=== PATIENT | female | born 1965 | race Caucasian/White ===

== ENCOUNTER 2024-09-22 17:57 | Emergency (ER) | payer OTHER, SELFPAY ==
[2024-09-22 17:59] VITALS: BP 165/83; PULSE 65; RESP 18; TEMP 36.6; O2SAT 100
--- NOTE | 2024-09-22 19:31 | CT_ITS ---
PROCEDURE: SPINE CERVICAL WITHOUT CONTRAS 09/22/2024 REASON FOR EXAM: NECK PAIN TECHNIQUE: Cervical spine CT without contrast. Coronal and Sagittal reconstruction series were provided. One or more dose reduction techniques were used (e.g., Automated exposure control, adjustment of the mA and/or kV according to patient size, use of iterative reconstruction technique RADIATION DOSE SUMMARY: DLP: 1311.25 MGycm COMPARISON: No relevant prior. FINDINGS: Vertebra: Vertebral bodies normal in height. C1-C2: Atlantoaxial articulation is maintained. Alignment: No scoliosis. No spondylolisthesis. Discs: Normal in height. Foramens: Unremarkable. Facets: Unremarkable. Soft tissues: Prevertebral soft tissues are normal. Lung apices: Unremarkable. CT/Spine Cervical without Contras IMPRESSION: Normal computed tomography of the cervical spine. Reading Location: [facility]
--- NOTE | 2024-09-22 19:31 | EKG12_ITS ---
Test Reason : DIZZINESS Blood Pressure : */* mmHG Vent. Rate : 58 BPM Atrial Rate : 58 BPM P-R Int : 188 ms QRS Dur : 90 ms QT Int : 426 ms P-R-T Axes : 29 22 24 degrees QTcB Int : 418 ms Sinus bradycardia Otherwise normal ECG Confirmed by Kaleb Garner ([id number]), magazine editor MARGARITA KIM ([id number]) on 09/26/2024 11:55:33 AM Referred By: SO Confirmed By: Kaleb Garner
--- NOTE | 2024-09-22 19:31 | CT_ITS ---
PROCEDURE: BRAIN/HEAD WITHOUT CONTRAST 09/22/2024 REASON FOR EXAM: HEADACHE TECHNIQUE: Contiguous axial scans of 3.75 mm slice thicknesses. Sagittal and coronal reconstruction images were obtained. One or more dose reduction techniques were used (e.g., automated exposure control, adjustment of mA and/or kv according to patient size, use of iterative reconstruction technique). RADIATION DOSE SUMMARY: DLP: 1311.25 mGycm COMPARISON: No relevant prior FINDINGS: Cerebrum: No intraparenchymal hemorrhage. No abnormal areas of encephalomalacia. No mass effect or midline shift. Vines-white matter differentiation is normal. Ventricles and cisterns: Appropriate size for patient's age. Extra-axial fluid: Unremarkable. Posterior fossa: Unremarkable cerebellum. No abnormalities involving the brainstem. Paranasal sinuses: Normal. Vasculature: Unremarkable. Mastoid air cells: unremarkable. Calvarium: Unremarkable. Soft tissues: Unremarkable. . CT/Brain/Head without Contrast IMPRESSION: No acute intracranial abnormalities are demonstrated. Reading Location: [place]
--- NOTE | 2024-09-22 19:33 | EX.ED.DYSGE1 ---
HPI History of Present Illness Chief Complaint: Dizziness Informant: patient and spouse/S.O. Narrative Narrative: 59-year-old female presenting to the emergency department weakness paresthesias. Patient states for the past couple weeks she has intermittently been feeling paresthesias described as tingling or numbness of the entire left arm she states it became more pronounced on Sunday and she felt like the arm was weaker than normal. She developed pain in the left shoulder and neck. Today she felt some nausea and headache. She denies any chest pain shortness of breath. She notes a history of hypothyroidism. [facility] Medical History Hypothyroid Home Medications ?Medication ?Instructions ?Recorded ?Last Taken ?Type cyclobenzaprine 10 mg tablet 10 mg PO TID PRN Muscle Spasm #15 09/22/24 Unknown Rx TABLETS ibuprofen 600 mg tablet 600 mg PO Q6H PRN PRN pain #20 09/22/24 Unknown Rx TABLETS levothyroxine 100 mcg tablet 100 mcg PO DAILY 09/22/24 Unknown History Allergy/AdvReac Type Severity Reaction Status Date / Time No Known Allergies Allergy Verified 09/22/24 17:59 Social History Smoking Status: Never smoker ROS ROS ED Constitutional Constitutional ED: Denies chills, fever(s) or weight loss Eyes Eyes: Denies change in vision or diplopia ENT ENT ED: Denies ear pain, rhinorrhea or sore throat Cardiovascular Cardiovascular: Denies chest pain, orthopnea, palpitations or racing heartbeat Respiratory/Chest Respiratory/Chest: Denies cough, dyspnea or orthopnea Gastrointestinal Gastrointestinal: Reports nausea; Denies abdominal pain, diarrhea or vomiting Genitourinary Genitourinary ED: Denies dysuria, hematuria or urinary frequency Musculoskeletal Musculoskeletal: Reports neck pain; Denies arthralgias or myalgias Integumentary Denies abscess or rash Neurologic Neurologic: Reports headache(s), paresthesias and weakness Psychiatric Psychiatric: Denies anxiety, depression, suicidal ideation or suicidal thoughts Endocrine Endocrinology: Denies polydipsia, polyphagia or polyuria Allergic/Immunologic Allergic/Immunologic ED: Denies mouth swelling, tongue swelling or urticaria EXAM Physical Exam Const Vital Signs: 09/22/24 17:59 09/22/24 20:00 09/22/24 21:00 Temperature 97.9 F 98.0 F Temperature Source Temporal Pulse Rate 65 71 64 Respiratory Rate 18 18 18 Blood Pressure 165/83 H 129/80 H 139/81 H Blood Pressure Mean 110 96 100 Pulse Ox 100 98 98 Oxygen Delivery Method Room Air Room Air Positive well nourished and well developed General Appearance ED: well developed HEENT Reports normocephalic, head/scalp atraumatic and moist mucous membranes Eyes PERRL and EOMs intact bilaterally Neck no lymphadenopathy, supple and no JVD Neck Narrative: Tender to palpation over the left trapezius musculature Resp normal respiratory effort and clear to auscultation bilaterally Cardio regular rate, regular rhythm and no murmurs GI normal to inspection, nondistended, normoactive bowel sounds and non-tender Palpation: soft Back/Spine no CVA tenderness and normal ROM Extremity normal to inspection General Extremety ED: Negative for edema General Extremity: Negative for edema Neuro oriented x3, CN's II-XII intact bilaterally and no sensory deficits noted Sensorium / Orientation: alert Motor Exam: strength 5/5 throughout Psych mental status grossly normal Mood & Affect: Negative for depressed or tearful Skin no rashes or lesions noted and no wounds MDM MDM MDM Narrative Medical decision making narrative: Differential diagnosis includes stroke cervical radiculopathy spinal stenosis nerve impingement muscular spasm acute coronary syndrome Patient blood work shows a white count of 7.1 normal electrolytes normal troponin less than 6. EKG sinus bradycardia at a rate of [address] of the brain shows no acute findings. CT of the cervical spine with no acute findings. I would have the patient discharged home. Her NIH is 0. I can write for some Flexeril and anti-inflammatories. Would recommend PCP follow-up. If persistent symptoms MRI may be indicated. History & Record Review Discussion w/independent historian: Patient and Significant other Lab Data Attestation: I reviewed the patient's lab results. Labs: Laboratory Results - last 24 hr 09/22/24 18:15 WBC 7.1 RBC 4.61 Hgb 13.9 Hct 41.2 MCV 89.4 MCH 30.2 MCHC 33.7 RDW Std Deviation 40.9 RDW Coeff of Tony 12.5 Plt Count 194 MPV 10.6 Immature Gran % (Auto) 0.300 Neut % (Auto) 57.0 Lymph % (Auto) 34.1 [place] % (Auto) 7.9 Eos % (Auto) 0.4 Baso % (Auto) 0.3 Absolute Neuts (auto) 4.0 Absolute Lymphs (auto) 2.42 Nucleated RBC % 0 Sodium 137 Potassium 3.8 Chloride 103 Carbon Dioxide 22.5 Anion Gap 12 BUN 10 Creatinine 0.84 Est GFR (MDRD) Non-Af 80 BUN/Creatinine Ratio 12.2 Glucose 80 Calcium 9.3 Total Bilirubin 0.73 AST 22 ALT 15 Alkaline Phosphatase 69 Troponin T High Sens < 6 Total Protein 7.0 Albumin 4.3 Globulin 2.7 Albumin/Globulin Ratio 1.6 Radiography Diagnostic Testing: Clinical Impression(s) from Imaging Studies Brain CT 09/22/24 19:31 IMPRESSION: No acute intracranial abnormalities are demonstrated. Reading [facility] Cervical Spine CT 09/22/24 19:31 IMPRESSION: Normal computed tomography of the cervical spine. Reading Location: [facility] EKG Initial EKG: Attestation: I personally reviewed and interpreted this EKG as follows: Comments: Sinus bradycardia ventricular rate of 58 bpm Discharge Plan Triage Chief Complaint: Dizziness ED Provider: Bib Franco Dx/Rx/DC Orders Clinical Impression: Acute neck pain, Paresthesia, Cervical radiculopathy Instructions: Cervical Radiculopathy Prescriptions: New cyclobenzaprine 10 mg tablet 10 mg PO TID PRN (Reason: Muscle Spasm) Qty: 15 0RF ibuprofen 600 mg tablet 600 mg PO Q6H PRN PRN (Reason: pain) Qty: 20 0RF No Action levothyroxine 100 mcg tablet 100 mcg PO DAILY Primary Care Provider: Care Physician,No Primary Referrals: Care Physician,No Primary [Primary Care Provider] - Activity Restrictions/Additional Instructions: Please call your doctor tomorrow morning to arrange follow-up. Print Language: Icelandic Disposition Disposition: Home, Self Care Discharge Date/Time: 09/22/24 21:09 NIHSS NIHSS 1a. Level of Consciousness: 0 - Alert; keenly responsive 1b. LOC Questions: 0 - Answers BOTH questions correctly 1c. LOC Commands: 0 - Performs BOTH tasks correctly 2. Best Gaze: 0 - Normal 3. Visual: 0 - No visual loss 4. Facial Palsy: 0 - Normal symmetrical movements 5a. Left Arm: 0 - No drift; arm holds 90 (or 45) degrees for full 10 seconds 5b. Right Arm: 0 - No drift; arm holds 90 (or 45) degrees for full 10 seconds 6a. Left Le - No drift; leg holds 30-degree position for full 5 seconds 6b. Right Le - No drift; leg holds 30-degree position for full 5 seconds 7. Limb Ataxia: 0 - Absent 8. Sensory: 0 - Normal; no sensory loss 9. Best Language: 0 - No aphasia; normal 10. Dysarthria: 0 - Normal 11. Extinction and Inattention: 0 - No abnormality Total: 0
[2024-09-22 19:54] LABS: Absolute Lymphocyte Count 2.42 X10^3/uL (0.83-4.51); Basophil# 0.02 X10^3/uL; Basophil% 0.3 % (0-1); Eosinophil# 0.03 X10^3/uL; Eosinophils% 0.4 % (0-5); Hematocrit 41.2 % (37-47); Hemoglobin 13.9 g/dL (12.0-15.0); Lymphocyte # 2.42 X10^3/ul (0.83-4.51); Lymphocyte % 34.1 % (19-41); Mean Corp Hgb Conc 33.7 g/dL (32-36); Mean Corpuscular Hgb 30.2 pg (27.0-32.0); Mean Corpuscular Volume 89.4 fL (81-99); Mean Platelet Vol. 10.6 fl (6.2-12.0); Monocyte# 0.56 X10^3/uL; Monocyte% 7.9 % (0-10); NRBC Flagged by Analyzer 0 % (0-5); Neutrophil # 4.04 X10^3/uL (2.7-7.7); Platelet Count 194 K/mm3 (150-450); RBC Distribution Width CV 12.5 % (11.6-14.6); RBC Distribution Width SD 40.9 fl (35.1-43.9); Red Blood Count 4.61 M/mm3 (4.2-5.4); White Blood Count 7.1 K/mm3 (4.4-11.0)
[2024-09-22 20:00] VITALS: BP 129/80; PULSE 71; RESP 18; O2SAT 98
[2024-09-22 20:29] LABS: Troponin T High Sensitivity < 6 ng/L (<=14)
[2024-09-22 20:31] LABS: ALB/GLOB Ratio 1.6 RATIO (0.9-2.4); AST(SGOT) 22 U/L (<=31); Alanine Aminotransfer ALT/SGPT 15 U/L (<=34); Albumin, Serum 4.3 g/dL (3.5-5.0); Alkaline Phosphatase 69 U/L (35-104); Anion Gap 12 (5-15); BUN 10 mg/dL (4-19); BUN/Creat Ratio 12.2 RATIO (10-20); Calcium,Total 9.3 mg/dL (7.6-11.0); Carbon Dioxide 22.5 mmol/L (21.0-32.0); Chloride 103 mmol/L (98-108); Creatinine, Serum 0.84 mg/dL (0.70-1.20); EST Glomerular Filtration Rate 80 (>60); Globulin 2.7 g/dL (2.2-4.2); Glucose 80 mg/dL (70-99); Potassium 3.8 mmol/L (3.3-5.1); Sodium Level 137 mmol/L (133-145); Total Bilirubin 0.73 mg/dL (0.00-1.30)
[2024-09-22 21:00] VITALS: BP 139/81; PULSE 64; RESP 18; TEMP 36.7; O2SAT 98
== END 2024-09-22 21:09 | disposition home or self-care (01) ==
LOC: ED 20:23
PROVIDERS: Emergency Provider Emergency Medicine; Visit Provider Emergency Medicine
DX: M54.12 Radiculopathy, cervical region (principal)
CPT/HCPCS: 70450; 72125; 80053; 84484; 85025; 93005; 99283; A4216

== ENCOUNTER → 2025-04-29 | Outpatient (CLI) | payer OTHER, SELFPAY ==
--- NOTE | 2025-04-29 07:59 | BI_ITS ---
EXAM: SCRN MAMM (CAD)W/STEVEN BILAT DATE: 04/29/2025 CLINICAL HISTORY: F, Age 59 y/o , SCREENING No family history. TECHNIQUE: Procedure Code: [id number] Modality: MG Procedure: SCRN MAMM (CAD)W/STEVEN BILAT COMPARISON: No prior studies available for comparison. FINDINGS: TISSUE DENSITY: There are scattered areas of fibroglandular density. Bilateral Breast Mammographic Findings: No significant masses, calcifications or other abnormalities are identified. No suspicious masses, areas of developing architectural distortion, or suspicious calcifications. BI/SCRN MAMM (CAD)W/STEVEN BILAT IMPRESSION: Unremarkable screening mammogram. OVERALL FINAL ASSESSMENT BI-RADS 1: NEGATIVE. RECOMMENDATION: Routine annual follow-up in 1 Year Additional Recommendation none A letter with findings and recommendations will be mailed to the patient. Reading Location: [place] [id number]
== END | disposition home or self-care (01) ==
LOC: OPBI 07:58
DX: Z12.31 Encounter for screening mammogram for malignant neoplasm of breast (principal)
CPT/HCPCS: 77063; 77067